=== PATIENT | male | born 1980 | race Caucasian/White ===

== ENCOUNTER 2019-03-11 21:34 | Observation (INO) ==
[2019-03-11] MEDS ORDERED: *HR* FentaNYL (PF) 100 MCG/2 ML VIAL IVP ONE (21:58)
[2019-03-11] MEDS ORDERED: Ketorolac 15 MG/ML VIAL IVP ONE (21:58)
[2019-03-11] MEDS ORDERED: Hyoscyamine 0.5 MG/ML MLS IVP ONE (21:58)
[2019-03-11] MEDS ORDERED: Ondansetron 4 MG/2 ML VIAL IVP ONE (22:03)
[2019-03-11] MEDS ORDERED: 0.9 % Sodium Chloride 1,000 ML IVC ONE (22:03)
--- NOTE | 2019-03-11 22:04 | Emergency Department Note ---
Disposition Clinical Impression: Cholecystitis Cholelithiasis Qualifiers: Cholelithiasis location: gallbladder Cholecystitis presence: with cholecystitis Cholecystitis acuity: acute Biliary obstruction: without biliary obstruction Qualified Code(s): K80.00 - Calculus of gallbladder with acute cholecystitis without obstruction Disposition: Admitted As Inpatient Referrals: Tone Morrison DO [Primary Care Provider] - Forms: ED Satisfaction Letter, Work/School Release Time of Disposition: 02:02 General Adult HPI - General Chief complaint: ED Abdominal Pain Stated complaint: RUQ Pain Time Seen by Provider: 03/11/19 21:57 Source: patient Limitations: no limitations Nursing Notes Reviewed: Yes Vital Signs Reviewed: Yes - History of Present Illness HPI Narrative: 38-year-old male presents emergency department with concern for sudden onset of right upper quadrant pain. Patient states that it was intermittent earlier today, but after mowing grass, he actually worse. Patient states it is sharp in nature, radiates to the right flank. Patient denies any history of stones. He does have his gallbladder. Patient reports that he has had maybe some mild issues with some abdominal discomfort, but nothing like this. Patient's last meal was around 2:00 today. Patient has no history of myocardial infarction. Patient denies fever, reports nausea, diaphoresis but no vomiting. No dysuria, urinary frequency, hematuria. Pain Scale: 0 - Related Data Home Medications Medication Instructions Recorded Confirmed No Known Home Drugs 03/12/19 03/12/19 Allergies Allergy/AdvReac Type Severity Reaction Status Date / Time azithromycin Allergy Nausea Verified 03/11/19 21:36 All systems ED: reviewed and negative except as stated. Review of Systems: As Per HPI Constitutional: Denies: fever Cardiovascular: Denies: chest pain Respiratory: Denies: dyspnea Gastrointestinal: Reports: abdominal pain, nausea. Denies: vomiting Genitourinary: Denies: urgency, dysuria, frequency Musculoskeletal: Reports: back pain Integumentary: Denies: rash Past Medical History - Past Medical History Attestation: Yes The following information was validated with the patient. Medical history: Reports: no medical history Psychiatric history: Reports: no psych history - Social History Smoking Status: Current every day smoker Alcohol use: Reports: none Drug use: Reports: none Physical Exam - General Limitations: no limitations General appearance: alert - Head Head exam: normocephalic - Eye Eye exam: Present: EOMI. Absent: scleral icterus - ENT ENT exam: mucous membranes moist - Neck Neck exam: Present: trachea midline - Chest Chest inspection: Present: symmetric chest wall rise - Respiratory Respiratory exam: Present: normal lung sounds bilaterally. Absent: respiratory distress, accessory muscle use - Cardiovascular Cardiovascular exam: Present: normal rhythm, bradycardia - Abdominal Exam Abdominal exam: Present: soft, tenderness, guarding, Ramirez's sign. Absent: distention, rigidity Abdominal tenderness: Present: RUQ, severe - Extremities Exam Extremities exam: Present: normal capillary refill - Back Exam Back exam: Present: full ROM - Neurological Exam Neurological exam: Present: alert, oriented X3 - Psychiatric Psychiatric exam: Present: normal affect, normal mood - Skin Skin exam: Present: warm, dry, intact, normal color. Absent: rash Course Vital Signs Temperature 97.5 F L 03/11/19 21:36 Pulse Rate 58 03/11/19 21:36 Respiratory Rate 16 03/11/19 21:36 Blood Pressure 123/72 03/11/19 21:36 O2 Sat by Pulse Oximetry 100 03/11/19 21:36 Temperature 97.5 F L 03/11/19 21:36 Pulse Rate 50 03/12/19 01:18 Respiratory Rate 16 03/12/19 01:18 Blood Pressure 109/70 03/12/19 01:18 O2 Sat by Pulse Oximetry 98 03/12/19 01:18 Oxygen Delivery Oxygen Delivery Room Air Medical Decision Making - [facility] Narrative Medical decision making narrative: 38-year-old male presents emergency department with concern for right upper quadrant pain for the last few hours. Patient appears to be On initial physical exam. We did obtain a ECG. No evidence of any ischemic ST changes noted. ED bedside ultrasound was performed and revealed dilated gallbladder, with some mild sludge. Common bile duct was not visualized. There was no evidence of any pericholecystic fluid or any gallstones within the gallbladder. Patient did h ave positive ultrasound Ramirez sign. : Ultrasound revealed unremarkable right upper quadrant ultrasound. CT scan of the abdomen and pelvis however, revealed cholelithiasis with concern for acute cholecystitis. Patient feeling more comfortable after administration of pain medication. I talked to the general surgeon Dr. Gonsales who agreed except patient for admission. Patient to get Zosyn. We have obtained blood cultures. I discussed this at bedside with patient and family. They agree with plan. Hemodynamically stable at time of admission. Gallbladder Ultrasound 03/11/19 22:06 IMPRESSION: Unremarkable right upper quadrant ultrasound. D/ / Ari Sky MD / Ari Sky MD Interpreting Provider: Ari Sky MD Abdomen/Pelvis CT 03/12/19 00:00 IMPRESSION: Cholelithiasis with suspected acute cholecystitis. D/ / Wellington Macias MD / Wellington Macias MD Interpreting Provider: Wellington Macias MD - Lab Data Result diagrams: 03/11/19 21:51 03/11/19 21:51 Lab Results 03/11/19 03/11/19 03/12/19 Range/Units 21:51 21:51 00:34 WBC 9.8 (4.3-11.1) K/mcL RBC 5.20 (4.19-5.50) M/mcL Hgb 15.4 (12.9-16.9) g/dL Hct 44.8 (37.5-50.1) % MCV 86.2 (83.0-100.0) fL MCH 29.6 (28.0-33.3) pg MCHC 34.4 (31.6-35.5) g/dL RDW 12.1 (11.5-14.5) % Plt Count 230 (140-400) K/mcL MPV 9.9 (9.4-12.4) fL Immature Gran % 0.6 (0-4) % Seg Neutrophils % 70.3 % Lymphocytes % 20.7 % Monocytes % 6.9 % Eosinophils % 1.1 % Basophils % 0.4 % Neutrophils # 6.9 (1.6-8.9) K/mcL Lymphocytes # 2.0 (0.6-4.6) K/mcL Monocytes # 0.7 (0.0-1.3) K/mcL Eosinophils # 0.1 (0.0-0.6) K/mcL Basophils # 0.0 (0.0-0.2) K/mcL Sodium 137 (136-145) mEq/L Potassium 3.8 (3.5-5.1) mEq/L Chloride 104 (98-107) mEq/L Carbon Dioxide 25 (23-29) mEq/L BUN 19 (6-20) mg/dL Creatinine 0.98 (0.70-1.30) mg/dL Est GFR ( Amer) > 60 (> 60) Est GFR (Non-Af Amer) > 60 (> 60) BUN/Creatinine Ratio 19 (6-26) Glucose 120 H (70-105) mg/dL Calculated Osmolality 287 (280-300) Calcium 9.9 (8.6-10.3) mg/dL Total Bilirubin 1.0 (0.3-1.0) mg/dL Direct Bilirubin 0.2 (0.0-0.2) mg/dL Indirect Bilirubin 0.8 (0.0-1.2) mg/dL AST 29 (13-39) Units/L ALT 52 (7-52) Units/L Alkaline Phosphatase 67 (34-104) Units/L Troponin I < 0.03 (< 0.04) ng/mL Serum Total Protein 6.9 (6.4-8.9) g/dL Albumin 4.5 (3.5-5.7) g/dL Globulin 2.4 (2.4-3.5) g/dL Albumin/Globulin Ratio 1.9 (1.1-2.2) Lipase 147 H (11-82) Units/L Urine Color Yellow (Yellow) Urine Clarity Turbid A (Clear) Urine pH 8.0 (5.0-8.0) pH Units Ur Specific [place] 1.010 (1.010-1.025) Urine Protein Trace (Neg-Trace) mg/dL Urine Glucose (UA) Normal (Normal) mg/dL Urine Ketones Negative (Negative) mg/dL Urine Blood Negative (Negative) Urine Nitrite Negative (Negative) Urine Bilirubin Negative (Negative) Urine Urobilinogen Normal (Normal) mg/dL Ur Leukocyte Esterase Negative (Negative) Urine Microscopic RBC 5-15 H (0-3) per hpf Urine Microscopic WBC 0-3 (0-3) per hpf Ur Squamous Epith Cells Many H (None-Few) per lpf Amorphous Sediment Many H (Few) Urine Bacteria None Seen (None-Few) per hpf Hyaline Casts None Seen (None-Few) per lpf Ur Culture Indicated? NO (NO) - EKG Data EKG #1 EKG attestation: Yes I reviewed and interpreted this EKG. EKG results narrative: 22:21 Heart rate 57 bpm, AK interval 144 ms, QRS duration 101 ms, QT 404 ms, normal axis. Sinus bradycardia with no ischemic ST changes.
[2019-03-11] MEDS ORDERED: Isovue-370 500 ML BOTTLE IVP ONE (22:06)
[2019-03-11 22:10] LABS: Basophils % 0.4 %; Eosinophils # 0.1 K/mcL (0.0-0.6); Eosinophils % 1.1 %; Hematocrit 44.8 % (37.5-50.1); Hemoglobin 15.4 g/dL (12.9-16.9); Immature Granulocytes % 0.6 % (0-4); Lymphocytes % 20.7 %; Mean Corpuscular HGB Conc 34.4 g/dL (31.6-35.5); Mean Corpuscular Hemoglobin 29.6 pg (28.0-33.3); Mean Corpuscular Volume 86.2 fL (83.0-100.0); Mean Platelet Volume 9.9 fL (9.4-12.4); Monocytes # 0.7 K/mcL (0.0-1.3); Monocytes % 6.9 %; Neutrophils # 6.9 K/mcL (1.6-8.9); Platelet Count 230 K/mcL (140-400); Red Cell Distribution Width 12.1 % (11.5-14.5); Segmented Neutrophils % 70.3 %; White Blood Count 9.8 K/mcL (4.3-11.1)
[2019-03-11 22:30] LABS: Alanine Aminotransferase 52 Units/L (7-52); Albumin 4.5 g/dL (3.5-5.7); Albumin/Globulin Ratio 1.9 (1.1-2.2); Alkaline Phosphatase 67 Units/L (34-104); Aspartate Amino Transferase 29 Units/L (13-39); BUN/Creatinine Ratio 19 (6-26); Bilirubin,Direct 0.2 mg/dL (0.0-0.2); Bilirubin,Indirect 0.8 mg/dL (0.0-1.2); Blood Urea Nitrogen 19 mg/dL (6-20); Calcium 9.9 mg/dL (8.6-10.3); Carbon Dioxide 25 mEq/L (23-29); Chloride 104 mEq/L (98-107); Globulin 2.4 g/dL (2.4-3.5); Glucose 120 mg/dL (70-105); Osmolality,Calculated 287 (280-300); Potassium 3.8 mEq/L (3.5-5.1); Sodium 137 mEq/L (136-145); Total Protein 6.9 g/dL (6.4-8.9); eGFR For African Americans > 60 (> 60); eGFR For Non-African Americans > 60 (> 60)
--- NOTE | 2019-03-11 22:35 | Emergency Department Note ---
Disposition Clinical Impression: Cholecystitis Cholelithiasis Qualifiers: Cholelithiasis location: gallbladder Cholecystitis presence: with cholecystitis Cholecystitis acuity: acute Biliary obstruction: without biliary obstruction Qualified Code(s): K80.00 - Calculus of gallbladder with acute cholecystitis without obstruction Disposition: Admitted As Inpatient Time of Disposition: 02:02 General Adult HPI - General Chief complaint: ED Abdominal Pain Stated complaint: RUQ Pain Time Seen by Provider: 03/11/19 21:57 Source: patient Limitations: no limitations Nursing Notes Reviewed: Yes Vital Signs Reviewed: Yes - History of Present Illness Pain Scale: 0 - Related Data Home Medications Medication Instructions Recorded Confirmed No Known Home Drugs 03/12/19 03/12/19 Allergies Allergy/AdvReac Type Severity Reaction Status Date / Time azithromycin Allergy Nausea Verified 03/11/19 21:36 Past Medical History - Past Medical History Medical history: Reports: no medical history Psychiatric history: Reports: no psych history - Social History Smoking Status: Current every day smoker Alcohol use: Reports: none Drug use: Reports: none Physical Exam - General Limitations: no limitations General appearance: alert Course Vital Signs Temperature 97.5 F L 03/11/19 21:36 Pulse Rate 58 03/11/19 21:36 Respiratory Rate 16 03/11/19 21:36 Blood Pressure 123/72 03/11/19 21:36 O2 Sat by Pulse Oximetry 100 03/11/19 21:36 Temperature 98.3 F 03/12/19 03:09 Pulse Rate 52 03/12/19 03:09 Respiratory Rate 15 03/12/19 03:09 Blood Pressure 112/67 03/12/19 03:09 O2 Sat by Pulse Oximetry 98 03/12/19 03:09 Oxygen Delivery Oxygen Delivery Room Air Medical Decision Making - Medical Records Medical records reviewed: Yes I reviewed the patient's medical records. - Lab Data Lab results reviewed: Yes I reviewed the patient's lab results. Result diagrams: 03/11/19 21:51 03/11/19 21:51 Lab Results 03/11/19 03/11/19 03/12/19 Range/Units 21:51 21:51 00:34 WBC 9.8 (4.3-11.1) K/mcL RBC 5.20 (4.19-5.50) M/mcL Hgb 15.4 (12.9-16.9) g/dL Hct 44.8 (37.5-50.1) % MCV 86.2 (83.0-100.0) fL MCH 29.6 (28.0-33.3) pg MCHC 34.4 (31.6-35.5) g/dL RDW 12.1 (11.5-14.5) % Plt Count 230 (140-400) K/mcL MPV 9.9 (9.4-12.4) fL Immature Gran % 0.6 (0-4) % Seg Neutrophils % 70.3 % Lymphocytes % 20.7 % Monocytes % 6.9 % Eosinophils % 1.1 % Basophils % 0.4 % Neutrophils # 6.9 (1.6-8.9) K/mcL Lymphocytes # 2.0 (0.6-4.6) K/mcL Monocytes # 0.7 (0.0-1.3) K/mcL Eosinophils # 0.1 (0.0-0.6) K/mcL Basophils # 0.0 (0.0-0.2) K/mcL Sodium 137 (136-145) mEq/L Potassium 3.8 (3.5-5.1) mEq/L Chloride 104 (98-107) mEq/L Carbon Dioxide 25 (23-29) mEq/L BUN 19 (6-20) mg/dL Creatinine 0.98 (0.70-1.30) mg/dL Est GFR ( Amer) > 60 (> 60) Est GFR (Non-Af Amer) > 60 (> 60) BUN/Creatinine Ratio 19 (6-26) Glucose 120 H (70-105) mg/dL Calculated Osmolality 287 (280-300) Calcium 9.9 (8.6-10.3) mg/dL Total Bilirubin 1.0 (0.3-1.0) mg/dL Direct Bilirubin 0.2 (0.0-0.2) mg/dL Indirect Bilirubin 0.8 (0.0-1.2) mg/dL AST 29 (13-39) Units/L ALT 52 (7-52) Units/L Alkaline Phosphatase 67 (34-104) Units/L Troponin I < 0.03 (< 0.04) ng/mL Serum Total Protein 6.9 (6.4-8.9) g/dL Albumin 4.5 (3.5-5.7) g/dL Globulin 2.4 (2.4-3.5) g/dL Albumin/Globulin Ratio 1.9 (1.1-2.2) Lipase 147 H (11-82) Units/L Urine Color Yellow (Yellow) Urine Clarity Turbid A (Clear) Urine pH 8.0 (5.0-8.0) pH Units Ur Specific [place] 1.010 (1.010-1.025) Urine Protein Trace (Neg-Trace) mg/dL Urine Glucose (UA) Normal (Normal) mg/dL Urine Ketones Negative (Negative) mg/dL Urine Blood Negative (Negative) Urine Nitrite Negative (Negative) Urine Bilirubin Negative (Negative) Urine Urobilinogen Normal (Normal) mg/dL Ur Leukocyte Esterase Negative (Negative) Urine Microscopic RBC 5-15 H (0-3) per hpf Urine Microscopic WBC 0-3 (0-3) per hpf Ur Squamous Epith Cells Many H (None-Few) per lpf Amorphous Sediment Many H (Few) Urine Bacteria None Seen (None-Few) per hpf Hyaline Casts None Seen (None-Few) per lpf Ur Culture Indicated? NO (NO) - Radiology Data Radiology results reviewed: Yes I reviewed the patient's radiology results. Gallbladder Ultrasound 03/11/19 22:06 IMPRESSION: Unremarkable right upper quadrant ultrasound. D/ / Ari Sky MD / Ari Sky MD Interpreting Provider: Ari Sky MD Abdomen/Pelvis CT 03/12/19 00:00 IMPRESSION: Cholelithiasis with suspected acute cholecystitis. D/ / Wellington Macias MD / Wellington Macias MD Interpreting Provider: Wellington Macias MD - EKG Data EKG #1 EKG attestation: Yes I reviewed and interpreted this EKG. EKG results narrative: EKG shows a sinus bradycardia with ventricular rate of 57. No ST segment elevation or depression. No arrhythmia or ectopy. Otherwise normal EKG. Attestation Statement - Attestation Attestation: I, Miguel Angel Newsome MD, personally evaluated this patient and discussed their management with the resident physician. I reviewed the resident's note and agree with the documented findings, medical decision making, and plan of care. I reviewed the residents documentation and agree with the residents assessment and plan of care. I have personally had face to face time with the patient. I personally supervised and was present for the godoy/critical portions of the following procedures completed by the resident: EKG interpretation. 38-year-old male presents to the emergency department with a complaint of severe right upper quadrant abdominal pain which started about 3 hours prior to arrival. He states earlier this morning he had some indigestion. He took a nap and he woke up from the nap about 3 hours ago with severe pain in the right upper quadrant. Pain radiates to the right back. There has been some nausea but no vomiting. Some diaphoresis from the pain. No chest pain or shortness of breath. No diarrhea. No melena, hematemesis, or hematochezia. No hematuria or dysuria. No prior abdominal surgeries. No history kidney stones. No prior medical history and takes no medications. On examination patient is a well-developed obese male in mild distress. He is alert and oriented 3. There is no cyanosis. He is pale and mildly clammy. Chest is nontender to palpation. Breath sounds are clear and equal bilaterally. Heart regular rate and rhythm. Abdomen is soft with present bowel sounds. There is marked right upper quadrant tenderness on direct palpation with positive Ramirez sign. There is marked right CVA tenderness. EKG shows a sinus bradycardia with ventricular rate of 57. No ST segment elevation or depression. No arrhythmia or ectopy. Otherwise normal EKG. labs reviewed and unremarkable other than elevated lipase at 147. Right upper quad rant ultrasound was negative however CT of the abdomen and pelvis showed cholelithiasis with suspected acute cholecystitis. The surgeon party plan salesperson, Dr. Gonsales, was consulted and accepted admission of the patient.
[2019-03-11 22:41] LABS: Lipase 147 Units/L (11-82)
[2019-03-11 22:42] LABS: Troponin I < 0.03 ng/mL (< 0.04)
[2019-03-12 00:45] LABS: Bilirubin,Urine Negative (Negative); Blood,Urine Negative (Negative); Clarity,Urine Turbid (Clear); Color,Urine Yellow (Yellow); Glucose,Urine (UA) Normal (Normal); Ketones,Urine Negative (Negative); Leukocyte Esterase,Urine Negative (Negative); Nitrite,Urine Negative (Negative); Protein,Urine Trace mg/dL (Neg-Trace); Urobilinogen,Urine Normal (Normal)
[2019-03-12 00:47] LABS: Bacteria,Urine None Seen per hpf (None-Few); Hyaline Casts,Urine None Seen per lpf (None-Few); Squamous Epithelial Cell,Urine Many per lpf (None-Few); WBC,Urine 0-3 per hpf (0-3)
[2019-03-12 01:02] LABS: Amorphous Sediment,Urine Many (Few)
[2019-03-12] MEDS ORDERED: Piperacillin/Tazobactam 3.375 GM in Water for inj. (sterile) 20 ML 20 ML IVP ONE (01:51)
[2019-03-12] MEDS ORDERED: Ondansetron 4 MG/2 ML VIAL IVP PRN ×2 (02:00→12:47)
[2019-03-12] MEDS ORDERED: 0.9 % Sodium Chloride 1,000 ML IVC SCH ×2 (02:00→12:47)
[2019-03-12] MEDS ORDERED: OXYCODONE Oral CONC 10 MG/0.5 ML ORAL.SYG SL PRN ×2 (02:02→12:47)
[2019-03-12] MEDS ORDERED: Piperacillin/Tazobactam 3.375 GM in 0.9 % Sodium Chloride Mini Bag 100 ML IVPB SCH ×4 (03:00→14:00)
--- NOTE | 2019-03-12 07:13 | Anesthesia Evaluation PreOp ---
Date of Encounter: 03/12/19 Time of Encounter: 10:37 - Past History Planned Operation: Laparoscopic Cholecystectomy Cardiac History: Denies any Significant Hx Pulmonary History: Denies Any Significant HX, Snore RUN LEAD History: Denies Any Significant HX Other Medical History: Denies Any Significant HX Anesthesia History: No Prior Anesthetic Complications, Past Anesthesia Alcohol Use: rarely Drug use: none Medications and Allergies No Known Home Drugs 03/12/19 [History] Allergy/AdvReac Type Severity Reaction Status Date / Time azithromycin Allergy Nausea Verified 03/11/19 21:36 - Meds/Allergy Pre-op Review Medications Reviewed: Yes Allergies Reviewed: Yes Beta Blockers on Current Med List: No Anesthesia Results - Labs 03/11/19 21:51 03/11/19 21:51 Anesthesia Exam Vital Signs/O2 Sat, Most Current Temp Pulse Resp BP Pulse Ox 98.0 F 57 16 108/64 99 03/12/19 06:44 03/12/19 06:44 03/12/19 06:44 03/12/19 06:44 03/12/19 06:44 Height: 5'11''/1.8m Weight: 250 lbs/113.4 kg NPO (# of Hours): 8 Pain Scale: 0 Pain Scale Used: Numeric (1 - 10) - HEENT Pupil (Motor): EOMI Mallampati: II Teeth: Normal Oral Opening: Greater than 3 - RUN LEAD LOC: Oriented RUN LEAD Motor: Normal RUE, Normal LUE, Normal RLE, Normal LLE, Normal Face RUN LEAD Sensory: Normal: RUE, LUE, RLE, LLE, Face - Cardiac Rhythm: Regular Murmur: None - Pulmonary Breath Sounds: bilateral Clear Respiratory Effort: Symmetrical Anesthesia Assess/Plan ASA Score: 1 Level of consciousness: Cooperative, Oriented, Tranquil Anesthetic Plan: General Monitoring Plan: Standard Monitors Recovery Plan: PACU
[2019-03-12] MEDS ORDERED: Piperacillin/Tazobactam 3.375 GM VIAL ONE (07:30)
[2019-03-12] MEDS ORDERED: cefOXitin 1,000 MG, 0.9 % Sodium Chloride 1,000 ML IR ONE (07:45)
--- NOTE | 2019-03-12 07:57 | Acute Care Surgery H&P ---
Date of Encounter: 03/12/19 Time of Encounter: 07:40 Assessment and Plan (1) Acute cholecystitis due to biliary calculus Current Visit: Yes Status: Acute The assessment and plan as outlined above was discussed with the patient and/or family members who expressed understanding and agreement. All questions were answered. The patient has acute cholecystitis associated with cholelithiasis. I recommended laparoscopic cholecystectomy, cholangiogram. Discussed the risks and benefits including bleeding, infection, postoperative bile leak, common bile duct injury, and open conversion. He understands this and wished to proceed. History of Present Illness Chief complaint: Right upper quadrant abdominal pain HPI: Mr. Barragan is a 38 year old male Who had acute onset right upper quadrant abdominal pain last evening. He had several episodes of central abdominal mild discomfort associated with nausea, but after a fatty meal last evening he developed severe right upper quadrant pain associated with nausea but no vomiting. He denies shakes chills or fever. He denies episodes of jaundice. He sought evaluation in the emergency room. Ultrasound of the right upper quadrant demonstrated sludge and gallbladder wall thickening. CAT scan of the abdomen demonstrated a gallstone in the neck of the gallbladder possibly causing obstruction. Exam is positive for cholelithiasis and most likely acute cholecystitis. I recommended laparoscopic cholecystectomy, cholangiogram. Past Med Surg Social Fam HX - Past Medical History Medical history: no medical history Psychiatric history: no psych history - Past Surgical History Surgical History: no surgical history - Social History Smoking Status: Smoker, status unknown Alcohol use: none Drug use: none Medications and Allergies No Known Home Drugs 03/12/19 [History] Allergy/AdvReac Type Severity Reaction Status Date / Time azithromycin Allergy Nausea Verified 03/11/19 21:36 Review of Systems All systems PM: The remainder of the systems were reviewed and are negative General Surgery Exam Initial Vital Signs Temp Pulse Resp BP Pulse Ox 97.5 F L 58 16 123/72 100 03/11/19 21:36 03/11/19 21:36 03/11/19 21:36 03/11/19 21:36 03/11/19 21:36 - General physical appearance well developed, well nourished, no distress - Neck no masses, no bruits, trachea midline, no lymphadectomy, no venous distension - Respiratory normal expansion, normal respiratory effort, clear to percussion, clear to auscultation - Cardiovascular Cardiovascular exam: Present: RRR, no murmurs/rubs/gallops - Abdomen Abdomen general surgery: Present: bowel sounds present, tender Abdominal Tenderness: Present: RUQ (Negative Ramirez sign at this time. Pain to deep palpation right upper quadrant) - Integumentary Integumentary general surgery: Present: warm and dry, no abnormal pigmentation, other (No evidence of jaundice) - Neurologic Present: CN 2-12 grossly intact, normal coordination, normal sensation - Psychiatric Psychiatric general surgery: Present: appropriate, oriented to person, oriented to place, oriented to time, speech is normal, memory intact Results - Labs 03/11/19 21:51 03/11/19 21:51 Abnormal lab results Glucose 120 mg/dL (70-105) H 03/11/19 21:51 147 Units/L (11-82) H 03/11/19 21:51 Turbid (Clear) A 03/12/19 00:34 5-15 per hpf (0-3) H 03/12/19 00:34 Ur Squamous Epith Cells Many per lpf (None-Few) H 03/12/19 00:34 Amorphous Sediment Many (Few) H 03/12/19 00:34 Diabetes panel 03/11/19 Range/Units 21:51 Sodium 137 (136-145) mEq/L Potassium 3.8 (3.5-5.1) mEq/L Chloride 104 (98-107) mEq/L Carbon Dioxide 25 (23-29) mEq/L BUN 19 (6-20) mg/dL Creatinine 0.98 (0.70-1.30) mg/dL Glucose 120 H (70-105) mg/dL Calcium 9.9 (8.6-10.3) mg/dL AST 29 (13-39) Units/L ALT 52 (7-52) Units/L Alkaline Phosphatase 67 (34-104) Units/L Albumin 4.5 (3.5-5.7) g/dL Calcium panel 03/11/19 Range/Units 21:51 Calcium 9.9 (8.6-10.3) mg/dL Albumin 4.5 (3.5-5.7) g/dL Pituitary panel 03/11/19 Range/Units 21:51 Sodium 137 (136-145) mEq/L Potassium 3.8 (3.5-5.1) mEq/L Chloride 104 (98-107) mEq/L Carbon Dioxide 25 (23-29) mEq/L BUN 19 (6-20) mg/dL Creatinine 0.98 (0.70-1.30) mg/dL Glucose 120 H (70-105) mg/dL Calcium 9.9 (8.6-10.3) mg/dL Adrenal panel 03/11/19 Range/Units 21:51 Sodium 137 (136-145) mEq/L Potassium 3.8 (3.5-5.1) mEq/L Chloride 104 (98-107) mEq/L Carbon Dioxide 25 (23-29) mEq/L BUN 19 (6-20) mg/dL Creatinine 0.98 (0.70-1.30) mg/dL Glucose 120 H (70-105) mg/dL Calcium 9.9 (8.6-10.3) mg/dL Total Bilirubin 1.0 (0.3-1.0) mg/dL AST 29 (13-39) Units/L ALT 52 (7-52) Units/L Alkaline Phosphatase 67 (34-104) Units/L Albumin 4.5 (3.5-5.7) g/dL All other labs normal. - Imaging CT scan - abdomen: image reviewed (I personally reviewed the CAT scan of the abdomen. I believe that the gallbladder is thick-walled with evidence of cho lelithiasis and the neck the gallbladder. This may represent obstruction.)
[2019-03-12] MEDS ORDERED: Isovue-300 50 ML VIAL ONE (09:06)
[2019-03-12] MEDS ORDERED: *HR* Midazolam HCl 2 MG/2 ML VIAL ONE (10:33)
[2019-03-12] MEDS ORDERED: *HR* FentaNYL (PF) 100 MCG/2 ML VIAL ONE (10:33)
[2019-03-12] MEDS ORDERED: *HR* Propofol 200 MG/20 ML VIAL IVP ONE ×2 (10:33)
[2019-03-12] MEDS ORDERED: Lidocaine -MPF 2% 2 ML VIAL ONE (10:37)
[2019-03-12] MEDS ORDERED: Ondansetron 4 MG/2 ML VIAL ONE (10:37)
[2019-03-12] MEDS ORDERED: Dexamethasone 4 MG/ML VIAL ONE (10:37)
[2019-03-12] MEDS ORDERED: *HR* Succinylcholine 200 MG/10 ML VIAL IVP ONE (10:37)
[2019-03-12] MEDS ORDERED: Lidocaine -MPF 4% 5 ML AMPUL ONE (10:37)
[2019-03-12] MEDS ORDERED: Acetaminophen IV 1,000 MG/100 ML INFUS..BTL ONE (10:39)
[2019-03-12] MEDS ORDERED: *HR* HYDROmorphone (PF) 1 MG/ML SYRINGE IVP PRN (10:41)
[2019-03-12] MEDS ORDERED: *HR* Promethazine 25 MG/ML VIAL IVP PRN (10:41)
[2019-03-12] MEDS ORDERED: *HR* HYDROMORPHONE 2 MG/ML VIAL ONE (11:17)
[2019-03-12] MEDS ORDERED: *HR* PHENYLEPHRINE 1,000 MCG/10 ML SYRINGE IVP ONE (11:31)
[2019-03-12] MEDS ORDERED: Neostigmine Methylsulfate 3 MG/3 ML SYRINGE ONE (11:53)
--- NOTE | 2019-03-12 12:05 | Operative Note ---
Date of procedure: 03/12/19 Pre-op diagnosis: Acute cholecystitis, cholelithiasis Post-op diagnosis: same Procedure: Laparoscopic cholecystectomy, cholangiogram Anesthesia: NALINI Surgeon: Warren Gonsales Was there an surgeon assistant present: No Estimated blood loss (cc): 10 Specimen: Gallbladder and contents Condition: stable Disposition: PACU Procedure in Detail: Laparoscopic cholecystectomy and intraoperative cholangiogram Operative procedure: after informed consent and appropriate patient identification, the patient was taken to the major operating suite and placed supine position and given adequate general endotracheal anesthesia. The abdomen was prepped and draped in sterile fashion utilizing ChloraPrep standard draping techniques. Timeout was taken and the patient was identified. I made a vertical midline incision below the umbilicus and dissected down to level of fascia. I placed 2 traction stitches of 0 vicryl in the midline fascia and the abdominal cavity was entered visually. A Bocanegra trocar was placed in the abdomen and the abdomen was insufflated to 15 mmHg pressure CO2. The gallbladder was visualized. I placemed an 11 port in the subxiphoid area and two 5 mm ports in the subcostal area. The gallbladder was encased in acute and chronic inflammatory adhesions and surrounded by edema. The gallbladder was grasped and elevated. A variety of blunt and sharp dissection techniques were used to isolate the cystic duct and cystic artery. The cystic artery was controlled with 2 surgical clips proximally and one distally and it was divided. I placed a surgical clip on the neck the gallbladder and obtained an intraoperative cholangiogram using 10 mL of Isovue. Intraoperative cholangiogram was normal. The cholangiocatheter was removed and the cystic duct was controlled with 2 surgical clips proximally and was divided. The gallbladder was removed from the gallbladder fossae using electrocautery. The gallbladder was removed from the abdomen through the #11 port site. I replaced the #11 port and irrigated with copious amounts of antibiotic containing solution. There was no evidence of bleeding or bile leak. All trochars were removed. Fascia was closed with 0 Vicryl and the skin with 2-0 and 4-0 Vicry. He tolerated the procedure well and was transferred to recovery in stable condition
--- NOTE | 2019-03-12 12:40 | Anesthesia Evaluation Post Op ---
Date of Encounter: 03/12/19 Time of Encounter: 12:39 - Vital Signs Vital Signs: Vital Signs/O2 Sat, Most Current Temp Pulse Resp BP Pulse Ox 98.5 F 50 12 122/67 93 03/12/19 12:12 03/12/19 12:32 03/12/19 12:32 03/12/19 12:32 03/12/19 12:32 - Lungs Lungs: Clear Ascult./Percussion - Airway Airway: Non-obstructed - Cardiovascular Regular Rate - Mental Status Mental Status: Alert & Oriented, Answers Appropriately - Pain Pain Scale: 2 Pain Scale used: Numeric (1 - 10) - Nausea Vomiting Nausea Vomiting: Not Present - Hydration Hydration: Ice chips, Has not voided - Discharge PostOp Status: Transfer Patient to floor
[2019-03-12] MEDS ORDERED: *HR* OxyCODONE/APAP 5/325 TABLET PO PRN (12:47)
--- NOTE | 2019-03-12 14:14 | Discharge Summary ---
- NOTES TO OUTPATIENT PROVIDER Notes to Outpatient Provider: Patient underwent laparoscopic cholecystectomy on 03/12/19. Medications include Percocet for 5 days for pain control and Colace. Patient to follow-up in 2 weeks with acute care surgery outpatient. Orders not resulted at time of discharge: Pending orders 03/12/19 02:14 Culture,Blood [BC] Stat 03/12/19 11:54 Surgical Pathology [PTH] Routine Date of Encounter: 03/12/19 Time of Encounter: 14:12 - Discharge Diagnosis (1) Acute cholecystitis due to biliary calculus Priority: Primary Status: Acute General Surgery Exam Initial Vital Signs Temp Pulse Resp BP Pulse Ox 97.5 F L 58 16 123/72 100 03/11/19 21:36 03/11/19 21:36 03/11/19 21:36 03/11/19 21:36 03/11/19 21:36 - General physical appearance well developed, well nourished, no distress, no pain - Eyes PERRL, normal ocular movement - ENT normal mucosa, no congestion - Neck trachea midline, no venous distension - Respiratory normal expansion, normal respiratory effort, clear to auscultation - Cardiovascular Cardiovascular exam: Present: RRR, no murmurs/rubs/gallops. Absent: JVD - Abdomen Abdomen general surgery: Present: bowel sounds present, soft, tender (Appropriately tender to palpation around the incisions). Absent: distended, guarding, rebound - Incision Incision: Present: clean and dry, intact - Integumentary Integumentary general surgery: Present: warm and dry, no abnormal pigmentation - Neurologic Present: CN 2-12 grossly intact, normal coordination, normal sensation - Musculoskeletal Present: normal gait, normal posture - Psychiatric Psychiatric general surgery: Present: appropriate, oriented to person, oriented to place, oriented to time, speech is normal, memory intact - Hospital Course Hospital course: Mr. Barragan is a 38 year old male who presented with acute onset right upper quadrant abdominal pain of one-day duration. No past medical history. He was afebrile, no leukocytosis and a lipase level was elevated at 147. A gallbladder ultrasound was performed which did not show pericholecystic fluid or wall thickening or stones. The common bile duct was within normal limits. An abdominal pelvis CT was performed which revealed some pericholecystic inflammation suggestive of cholelithiasis and suspected acute cholecystitis. The patient was started on Zosyn for antibiotic coverage. The patient underwent laparoscopic cholecystectomy with intraoperative cholangiogram for acute cholecystitis. The cholangiogram revealed no evidence of a bile leak or common bile duct stone. He was stable in recovery, vital signs are stable, patient tolerated procedure well. Mr. Barragan is well for discharge to home with follow- up with acute care surgery outpatient in 2 weeks. He will be sent with 5 days of Percocet for pain control as well as Colace. - Time Spent with Patient Total time spent providing and/or coordinating discharge services: - Discharge Medications Prescriptions: New Docusate [Colace] 100 mg PO DAILY 15 Days #15 capsule Oxycodone HCl/Acetaminophen [Percocet 5-325 mg Tablet] 1 each PO Q6HR PRN 5 Days #20 tablet PRN Reason: Pain Home Medications: Docusate [Colace] 100 mg PO DAILY 15 Days #15 capsule 03/12/19 [Rx] Oxycodone HCl/Acetaminophen [Percocet 5-325 mg Tablet] 1 each PO Q6HR PRN 5 Days #20 tablet 03/12/19 [Rx] Allergies/Adverse Reactions: Allergy/AdvReac Type Severity Reaction Status Date / Time azithromycin Allergy Nausea Verified 03/11/19 21:36 Date of admission: 03/12/19 02:07 Primary care physician: Tone Morrison DO Discharging clinician: Taryn Moya Anticipated date of discharge: 03/12/19 Labs on day of discharge: Labs from last 24 hours 03/12/19 03/12/19 03/11/19 05:35 00:34 21:51 WBC RBC Hgb Hct MCV MCH MCHC RDW Plt Count MPV Immature Gran % Seg Neutrophils % Lymphocytes % Monocytes % Eosinophils % Basophils % Neutrophils # Lymphocytes # Monocytes # Eosinophils # Basophils # Sodium 137 Potassium 3.8 Chloride 104 Carbon Dioxide 25 BUN 19 Creatinine 0.98 Est GFR ( Amer) > 60 Est GFR (Non-Af Amer) > 60 BUN/Creatinine Ratio 19 Glucose 120 H POC Glucose 95 Calculated Osmolality 287 Calcium 9.9 Total Bilirubin 1.0 Direct Bilirubin 0.2 Indirect Bilirubin 0.8 AST 29 ALT 52 Alkaline Phosphatase 67 Troponin I < 0.03 Serum Total Protein 6.9 Albumin 4.5 Globulin 2.4 Albumin/Globulin Ratio 1.9 Lipase 147 H Urine Color Yellow Urine Clarity Turbid A Urine pH 8.0 Ur Specific [place] 1.010 Urine Protein Trace Urine Glucose (UA) Normal Urine Ketones Negative Urine Blood Negative Urine Nitrite Negative Urine Bilirubin Negative Urine Urobilinogen Normal Ur Leukocyte Esterase Negative Urine Microscopic RBC 5-15 H Urine Microscopic WBC 0-3 Ur Squamous Epith Cells Many H Amorphous Sediment Many H Urine Bacteria None Seen Hyaline Casts None Seen Ur Culture Indicated? NO 03/11/19 21:51 WBC 9.8 RBC 5.20 Hgb 15.4 Hct 44.8 MCV 86.2 MCH 29.6 MCHC 34.4 RDW 12.1 Plt Count 230 MPV 9.9 Immature Gran % 0.6 Seg Neutrophils % 70.3 Lymphocytes % 20.7 Monocytes % 6.9 Eosinophils % 1.1 Basophils % 0.4 Neutrophils # 6.9 Lymphocytes # 2.0 Monocytes # 0.7 Eosinophils # 0.1 Basophils # 0.0 Sodium Potassium Chloride Carbon Dioxide BUN Creatinine Est GFR ( Amer) Est GFR (Non-Af Amer) BUN/Creatinine Ratio Glucose POC Glucose Calculated Osmolality Calcium Total Bilirubin Direct Bilirubin Indirect Bilirubin AST ALT Alkaline Phosphatase Troponin I Serum Total Protein Albumin Globulin Albumin/Globulin Ratio Lipase Urine Color Urine Clarity Urine pH Ur Specific [place] Urine Protein Urine Glucose (UA) Urine Ketones Urine Blood Urine Nitrite Urine Bilirubin Urine Urobilinogen Ur Leukocyte Esterase Urine Microscopic RBC Urine Microscopic WBC Ur Squamous Epith Cells Amorphous Sediment Urine Bacteria Hyaline Casts Ur Culture Indicated? Preliminary micro results at discharge 03/12/19 02:14 Blood Culture - Preliminary Peripheral Venipuncture Culture is incubating and being continuously monitored for growth. Final report to follow. 03/12/19 02:14 Blood Culture - Preliminary Peripheral Venipuncture Culture is incubating and being continuously monitored for growth. Final report to follow. - Impressions ITS Impressions Gallbladder Ultrasound 03/11/19 22:06 IMPRESSION: Unremarkable right upper quadrant ultrasound. D/ / Ari Sky MD / Ari Sky MD Interpreting Provider: Ari Sky MD Abdomen/Pelvis CT 03/12/19 00:00 IMPRESSION: Cholelithiasis with suspected acute cholecystitis. D/ / Wellington Macias MD / Wellington Macias MD Interpreting Provider: Wellington Macias MD Cholangiogram,Operative 03/12/19 00:00 IMPRESSION: 1. No evidence of a bile leak or common bile duct stone. 2. Refer to surgical report. D/ / 03/12/2019 12:11:40 Geovani Orozco MD / agatha Interpreting Provider: Geovani Orozco MD - Patient Status Disposition: Home, Self-Care Condition: Good Functional capacity at discharge: independent ambulation Overall status at discharge: patient is progressing back to baseline - Discharge Instructions Instructions: Cholecystitis (GEN), Laparoscopic Cholecystectomy (DC) Follow Up With: Tone Morrison DO [Primary Care Provider] - Warren Gonsales MD [Partnered Physician] - Forms: Work/School Release Additional Instructions: General Surgical Discharge Instructions 1. No pushing, pulling, or lifting greater than 15 lbs for 2-4 weeks (depending upon procedure). 2. You may shower beginning today, but no tub baths, soaking, or swimming for 2 weeks. 3. You may resume driving when you are off narcotics and are safe to react in a car. 4. Take ibuprofen every 8 hours for discomfort. If this does not relieve discomfort, you may take the as needed Percocet. Take narcotics as directed. Do not take more narcotics then directed and do not share your narcotics with any other person. Do not drink alcohol while on narcotics. 5. Take stool softeners (Colace) or a water based laxative (Miralax) while taking narcotics. You may hold for loose stools. 6. Report any fevers greater than 100.5F, increase abdominal discomfort, drainage that looks like pus, increased redness or pain at the surgical site, or any vomiting. 7. Report any pain in the calves, shortness of breath, or rapid heartbeat. 8. Follow-up in the office as directed. 9. If you were prescribed antibiotics, do not stop them without talking to your provider. - Diet and Activity Activity: resume usual activities as tolerated Diet: advance to your usual diet
--- NOTE | 2019-03-12 14:18 | Electrocardiograph Report ---
[address] [id number] Test Date: 2019-03-11 Pat Name: Juarez Barragan Department: EXAM4 Room: 3A Gender: M Director Search: : 1980 Requested By: Orion Patel Order Number: [id number] Reading MD: Bill Ansari Measurements Intervals [place] Rate: 57 P: -26 [place]: 144 QRS: 46 QRSD: 101 T: 22 QT: 404 QTc: 394 Interpretive Statements Sinus rhythm Electronically Signed On 03-12-2019 14:16:26 EDT by Bill Ansari
[2019-03-12 14:30] VITALS: BP 112/72
== END 2019-03-12 16:10 | disposition home or self-care (01) ==
LOC: 3ANU 21:34 → EMEROOARM 21:34 → 3ANU 03-12 02:55
PROVIDERS: ADMIT Surgery; ATTEND Surgery